=== PATIENT | male | born 1995 | race Caucasian/White ===

== ENCOUNTER 2018-08-02 13:57 | Emergency (ER) | payer OTHER ==
[2018-08-02 14:19] VITALS: BP 138/65; PULSE 75; TEMP 98.2; BMI 22.7
--- NOTE | 2018-08-02 14:19 | PDOC ---
Rapid Medical Evaluation Chief Complaint: Cold Symptoms Time Seen by Provider: 08/02/18 14:16 Medical Evaluation: Allergies Allergy/AdvReac Type Severity Reaction Status Date / Time No Known Allergies Allergy Verified 08/02/18 14:16 08/02/18 14:17 I have performed a brief in-person evaluation of this patient. The patient presents with a chief complaint of: cough , for 2-3 days sinus pressure. no fever no chills. Pertinent physical exam findings:nasal congestion , lungs CTA bilaterally I have ordered the following:none The patient will proceed to the ED for further evaluation.
--- NOTE | 2018-08-02 16:21 | PDOC ---
History of Present Illness - General Chief Complaint: Cold Symptoms Stated Complaint: SINUS INFECTION Time Seen by Provider: 08/02/18 14:16 History Source: Patient Exam Limitations: No Limitations - History of Present Illness Initial Comments: 08/02/18 16:15 HISTORY OF PRESENT ILLNESS: 22-year-old male presents for evaluation of increased sinus pressure and tenderness which worsens while leaning forward. Patient reports he's had the symptoms for the past 3-4 days and is now concerned is when he blew his nose he had some brown nasal discharge. He denies fevers, chills, dizziness, blurry vision, headaches. No recent travel or sick contacts. PAST MEDICAL HISTORY: Denies past medical history SURGICAL HISTORY: Denies ALLERGIES: No known drug allergies REVIEW OF SYSTEMS General/Constitutional: Denies fever or chills. Denies weakness, weight change. HEENT: Denies change in vision. Denies ear pain or discharge. Denies sore throat. Sinus pressure. Cardiovascular: Denies chest pain or shortness of breath. Respiratory: Denies cough, wheezing, or hemoptysis. Gastrointestinal: Denies nausea, vomiting, diarrhea or constipation. Denies rectal bleeding. Genitourinary: Denies dysuria, frequency, or change in urination. Musculoskeletal: Denies joint or muscle swelling or pain. Denies neck or back pain. Skin and breasts: Denies rash or easy bruising. Neurologic: Denies headache, vertigo, loss of consciousness, or loss of sensation. Psychiatric: Denies depression or anxiety. Endocrine: Denies increased thirst. Denies abnormal weight change. Hematologic/Lymphatic: Denies anemia, easy bleeding, or history of blood clots. Allergic/Immunologic: Denies hives or skin allergy. Denies latex allergy. PHYSICAL EXAM General Appearance: Well-appearing, appropriately dressed. No apparent distress , no intoxication. HEENT: EOMI, PERRLA, normal ENT inspection, normal voice, TMs normal, pharynx normal. No conjunctival pallor. No photophobia, scleral icterus. Sinus tenderness to ethmoid and maxillary sinuses. Respiratory/Chest: Lungs CTAB. No shortness of breath, chest tenderness, respiratory distress, accessory muscle use. No crackles, rales, rhonchi, stridor , wheezing, dullness Cardiovascular: RRR. S1, S2. No JVD, murmur, bradycardia, tachycardia. Vascular Pulses: Dorsalis-Pedis (R): 2+, Dorsalis-Pedis (L): 2+ Neurologic: offset printing operator II-XII intact. Fully oriented, alert. Appropriate mood/affect. Motor strength 5/5. No appreciable EOM palsy, facial droop or sensory deficit. Past History - Past Medical History Allergies/Adverse Reactions: Allergies Allergy/AdvReac Type Severity Reaction Status Date / Time No Known Allergies Allergy Verified 08/02/18 14:16 Home Medications: Ambulatory Orders Amox-Tr/K Cl [Augmentin - 875Mg Tablet] 1 tab PO BID #20 tablet 08/02/18 COPD: No CHF: No - Immunization History Immunization Up to Date: Yes - Suicide/Smoking/Psychosocial Hx Smoking History: Former smoker Have you smoked in the past 12 months: No If you are a former smoker, when did you quit?: 2YRS Information on smoking cessation initiated: No Hx Alcohol Use: No Drug/Substance Use Hx: No *Physical Exam - Vital Signs Last Vital Signs Temp Pulse Resp BP Pulse Ox 98.2 F 75 18 138/65 99 08/02/18 14:16 08/02/18 14:16 08/02/18 14:16 08/02/18 14:16 08/02/18 14:16 Moderate Sedation - Procedure Monitoring Vital Signs: Procedure Monitoring Vital Signs Temperature 98.2 F 08/02/18 14:16 Pulse Rate 75 08/02/18 14:16 Respiratory Rate 18 08/02/18 14:16 Blood Pressure 138/65 08/02/18 14:16 O2 Sat by Pulse Oximetry (%) 99 08/02/18 14:16 Medical Decision Making - Medical Decision Making 08/02/18 17:00 A/P: 22-year-old male with 4 days of sinus pressure and tenderness Review purulent discharge and patient blows his nose Tenderness to ethmoid sinuses Oropharynx clear without erythema, lesions or exudates Lungs clear to auscultation bilaterally Exam is consistent with an acute sinusitis. I'll discharge the patient home with prescription for Augmentin to be taken for the next 10 days. Patient is agreement with the plan is verbalized understanding of discharge instructions. *DC/Admit/Observation/Transfer Diagnosis at time of Disposition: Sinusitis, acute Qualifiers: Sinusitis location: unspecified location Recurrence: non-recurrent Qualified Code(s): J01.90 - Acute sinusitis, unspecified - Discharge Dispostion Disposition: HOME Condition at time of disposition: Stable Decision to Admit order: No - Prescriptions Prescriptions: Amox-Tr/K Cl [Augmentin - 875Mg Tablet] 1 tab PO BID #20 tablet - Referrals Referrals: Lincoln Garcia MD [Primary Care Provider] - - Patient Instructions Additional Instructions: Rest, drink lots of fluids: Teas, water, soups, Pedialyte Saltwater gargles Steamy showers/seem to face break up mucus Avoid contact with others until fevers and cough resolved Lots of handwashing and good hygiene Continue [id number] medications for symptomatic relief Tylenol or Motrin for fever and pain Augmentin 1 tablet twice a day until all medication is completed. Followup with private physician in one to 2 days as needed Return to emergency department for worsened symptoms, fevers, dehydration - Post Discharge Activity Forms/Work/School Notes: Back to Work
== END 2018-08-02 16:27 | disposition home or self-care (01) ==
LOC: JERFT 13:57
DX: J01.90 Acute sinusitis, unspecified (principal); Z87.891 Personal history of nicotine dependence
CPT/HCPCS: 99281-25